=== PATIENT | female | born 1965 | race Caucasian/White ===

== ENCOUNTER 2021-02-07 06:54 | Day surgery (SDC) | payer OTHER ==
[2021-02-02 15:42] LABS: Absolute Lymphocytes (CBC) 3.6 K/uL (0.7-4.9); Basophils % 1.1 % (0-1.3); Hematocrit 43.3 % (36.0-45.0); Lymphocytes % 40.5 % (15.3-44.8); MPV 8.7 fL (7.6-11.3); RBC Red Blood Cell Count 4.67 M/uL (3.86-4.86)
[2021-02-02 15:44] LABS: Potassium 3.9 mmol/L (3.5-5.1)
[2021-02-07] MEDS ORDERED: NA CHLORIDE 0.9% 1,000 ML ONE (07:39)
[2021-02-07] MEDS ORDERED: CEFAZOLIN/SWI 2gm 2 GM/20 ML SYR ONE (07:39)
[2021-02-07] MEDS ORDERED: CELECOXIB 100 MG CAPSULE ONE (08:09)
[2021-02-07] MEDS ORDERED: ACETAMINOPHEN 500 MG TAB ONE (08:09)
[2021-02-07] MEDS ORDERED: FENTANYL CITR 100 MCG/2 ML ONE (10:35)
[2021-02-07] MEDS ORDERED: propofoL 200 MG/20 ML VIAL IV ONE (10:35)
[2021-02-07] MEDS ORDERED: LIDOCAINE 1% MPF 5 ML VIAL ONE (10:35)
[2021-02-07] MEDS ORDERED: MIDAZOLAM HCL 2 MG/2 ML INJ ONE (10:35)
[2021-02-07] MEDS ORDERED: BUPIVACAINE 0.25% PF 30 ML VIAL ONE (10:42)
[2021-02-07] MEDS ORDERED: dexAMETHasone 10 MG/ML VIAL ONE (11:00)
[2021-02-07] MEDS ORDERED: KETOROLAC 30 MG/ML INJ ONE (11:00)
--- NOTE | 2021-02-07 11:05 | P.OP ---
Preoperative diagnosis: LEFT Shoulder Lipoma Postoperative diagnosis: LEFT Shoulder Lipoma Primary procedure: Wide Local Excision of LEFT Shoulder Lipoma Anesthesia: GETA + Local Estimated blood loss: <10cc Specimen: LEFT Shoulder Lipoma Findings: ~20cm x 10cm lipomatous mass extending to fascia over muscle Complications: None Transferred to: Recovery Room Condition: Good
[2021-02-07] MEDS ORDERED: ONDANSETRON 4 MG/2 ML VIAL ONE (11:24)
[2021-02-07 11:43] VITALS: TEMP 97.1
[2021-02-07] MEDS ORDERED: HYDROCODONE/APAP 7.5/325 MG TAB PO ONE (12:12)
[2021-02-07] MEDS ORDERED: HYDROCODONE/APAP 7.5/325 MG TAB ONE (12:32)
[2021-02-07 12:37] VITALS: BP 113/46
[2021-02-07 12:39] VITALS: O2SAT 96
--- NOTE | 2021-02-07 18:13 | OP ---
Date of Procedure: 02/07/2021 Surgeon: Hasmukh Saenz MD, Preoperative Diagnosis: Left shoulder lipoma. Postoperative Diagnosis: Left shoulder lipoma. Procedure Performed: Wide local excision of left shoulder lipoma. Anesthesia: General endotracheal plus local with 0.25% Marcaine. Estimated Blood Loss: Less than 10 mL. Specimen: Left shoulder lipoma. Findings: Approximately 20 cm x 10 cm lipomatous mass extending to the fascia overlying the muscle i n the left shoulder area on the superior aspect of the shoulder. Complications: None. Disposition: The patient was transferred to recovery room in good condition. Procedure In Detail: After informed consent was obtained, the patient was brought to the operating r oom, prepped and draped in the usual sterile fashion after adequate anesthesia was achieved. A linea r incision was made after appropriately anesthetizing the skin overlying the shoulder lipomatous mass down to subcutaneous tissues. Electrocautery was used to dissect down to the capsule surrounding a lipomatous mass. This was found to be consistent with a benign and soft tissue lipoma. It was excis ed using predominantly blunt dissection with a combination of electrocautery and blunt dissection cir cumferentially around to remove the mass in its entirety with its associated tissue. The capsular co nnections were ligated using electrocautery and extended all the way to the fascia overlying the musc le, but not investing them. After the mass was removed, a marking stitch was placed short, stitch sullivan perior long lateral of the lipomatous mass. It was sent off for pathologic examination. The cavity was then irrigated copiously multiple times and suctioned out until completely clear. Electrocautery was used to achieve hemostasis at this point and the wound was then closed using a combination of 3- 0 Vicryl subdermal sutures in an interrupted fashion as well as a running 4-0 Monocryl in a running f ashion. Dermabond placed over top. The patient tolerated the procedure well without evidence of com plication and transferred to PACU in good condition. All counts were correct at the end of the case. SYLVIA/CHANDUL Voice ID: [id number] Report ID: [id number]
== END 2021-02-07 12:30 | disposition home or self-care (01) ==
LOC: OR 06:54
PROVIDERS: ATTEND Surgery
PROC: 0JBF0ZZ Excision of Left Upper Arm Subcutaneous Tissue and Fascia, Open Approach (ICD-10-PCS; principal; 2021-02-07 08:30)
DX: D17.22 Benign lipomatous neoplasm of skin and subcutaneous tissue of left arm (principal); J45.909 Unspecified asthma, uncomplicated; J44.9 Chronic obstructive pulmonary disease, unspecified; E78.00 Pure hypercholesterolemia, unspecified
CPT/HCPCS: 85025; 80048; 36415; 82947 ×2; 88304; 11406; J2704; J2250; J3010; J1100; J0690; J7030; J2405; 88305